=== PATIENT | male | born 1990 | race American Indian/Alaskan Native ===

== ENCOUNTER 2017-05-22 04:18 | Emergency (ER) | payer SELFPAY ==
[2017-05-22 08:33] VITALS: BP 192/104
--- NOTE | 2017-05-22 08:45 | Emergency Department Report ---
HPI - General Chief Complaint: Extremity Injury, Upper Time Seen by Provider: 05/22/17 07:37 - HPI HPI: Pt is a 26 yo male who presenst ti ED cc of finger pain intermittently x 2 years. Pt states he had a index finger accident 2 years ago that took the tip of his finger off, pt states he had surgey on the finger and since then has had intermittent pain and is unable to work, Pt staTES YESTERDAY HE HIT THE FINGER ON A STAPLER. Pt states this has worsened the pain on the finger and he had some minimal bleeding after incident. Pt states he has no insurance and is unable to return to the surgeon office. ED Past Medical Hx - Past Medical History Previous Medical History?: Yes Hx Asthma: Yes Additional medical history: sleep apnea-noncompliant with cpap - Surgical History Past Surgical History?: Yes Additional Surgical History: rt index finger fxr repair x2 - Social History Smoking Status: Current Every Day Smoker Substance Use Type: None - Medications Home Medications: Home Medications Medication Instructions Recorded Confirmed Last Taken Type Acetaminophen/Codeine [Tylenol 1 tab PO Q6H PRN #10 tab 05/22/17 Unknown Rx /Codeine # 3 tab] Cyclobenzaprine [Flexeril] 10 mg PO QHS PRN #20 tablet 05/22/17 Unknown Rx Ibuprofen [Motrin] 800 mg PO Q8HR PRN #40 tablet 05/22/17 Unknown Rx amLODIPine [Norvasc] 5 mg PO DAILY #30 tab 05/22/17 Unknown Rx ED Review of Systems ROS: Stated complaint: FINGER BLEEDING Other details as noted in HPI Constitutional: denies: chills, fever Eyes: denies: eye pain, eye discharge, vision change ENT: denies: ear pain, throat pain Respiratory: denies: cough, shortness of breath, wheezing Cardiovascular: denies: chest pain, palpitations Endocrine: no symptoms reported Gastrointestinal: denies: abdominal pain, nausea, diarrhea Genitourinary: denies: urgency, dysuria Musculoskeletal: denies: back pain, joint swelling, arthralgia Skin: denies: rash, lesions Neurological: denies: headache, weakness, paresthesias Psychiatric: denies: anxiety, depression Hematological/Lymphatic: denies: easy bleeding, easy bruising Physical Exam - Physical Exam Vital Signs: Vital Signs 05/22/17 05/22/17 05:21 08:26 Temperature 98.3 F Pulse Rate 81 86 Respiratory 18 18 Rate Blood Pressure 186/115 Blood Pressure 200/91 [Left] O2 Sat by Pulse 100 100 Oximetry Physical Exam: GENERAL: Alert and oriented x3, no apparent distress, Normal Gait, atraumatic. HEAD: Head is normocephalic and a-traumatic. EYES: Extra ocular muscles are intact. Pupils are equal, round, and reactive to light and accommodation. LUNGS: Symetrical with respiration, No wheezing, no rales or crackles, CTAB. HEART: S1, S2 present, regular rate and rhythm without murmur, no rubs, no gallops. EXTREMITIES/MUSCULOSKELETAL: No cyanosis, clubbing, rash, lesions or edema. Full ROM bilaterally. UE/LE Pulses 2+ bilaterally. LE and UE 5+ strength bilaterally. rigth index finger shorter than normal with curved grown nail. tender to palpation. mildly swollen. no active bleed. NEUROLOGIC: No focal Deficit, Cranial nerves II through XII are grossly intact. No loss of sensation, SKIN: Warm and dry, No lesions, No ulceration or induration present. ED Course Vital Signs 05/22/17 05/22/17 05:21 08:26 Temperature 98.3 F Pulse Rate 81 86 Respiratory 18 18 Rate Blood Pressure 186/115 Blood Pressure 200/91 [Left] O2 Sat by Pulse 100 100 Oximetry ED Medical Decision Making - Medical Decision Making 26 yo male presents with finger injury bP elevated in triage and ED stay, asymptomatic. clonidine 0.1 given as well as pain control Discused with pt need to fu with pcp discussed BP control until f/u home rx of amlodoipine. discussed f/u with pt to f/u with Orthopedic Critical care attestation.: If time is entered above; I have spent that time in minutes in the direct care of this critically ill patient, excluding procedure time. ED Disposition Clinical Impression: Finger pain, right, Elevated blood pressure reading without diagnosis of hypertension Disposition: DC-01 TO HOME OR SELFCARE Is pt being admited?: No Does the pt Need Aspirin: No Condition: Stable Instructions: Subungual Hematoma (ED), Jammed Finger (ED), Arthralgia (ED) Prescriptions: Cyclobenzaprine [Flexeril] 10 mg PO QHS PRN #20 tablet PRN Reason: Muscle Spasm Acetaminophen/Codeine [Tylenol /Codeine # 3 tab] 1 tab PO Q6H PRN #10 tab PRN Reason: Pain amLODIPine [Norvasc] 5 mg PO DAILY #30 tab Ibuprofen [Motrin] 800 mg PO Q8HR PRN #40 tablet PRN Reason: Pain Referrals: PRIMARY CARE,MD [Primary Care Provider] - 3-5 Days [facility] [Outside] - 3-5 Days [facility] [Outside] - 3-5 Days [facility] [Outside] - 3-[address] [facility] [Outside] - 3-5 Days Forms: Accompanied Note, Work/School Release Form(ED) Time of Disposition: 09:31
[2017-05-22] MEDS ORDERED: TYLENOL #3 PO ONE (08:58)
[2017-05-22] MEDS ORDERED: CATAPRES PO ONE (08:58)
== END 2017-05-22 09:58 | disposition home or self-care (01) ==
LOC: ED 04:18
DX: M79.644 Pain in right finger(s) (principal); R03.0 Elevated blood-pressure reading, without diagnosis of hypertension; J45.909 Unspecified asthma, uncomplicated; F17.210 Nicotine dependence, cigarettes, uncomplicated
CPT/HCPCS: 99282